=== PATIENT | male | born 2000 | race Caucasian/White ===

== ENCOUNTER 2021-02-19 21:32 | Emergency (ER) | payer MEDICAID ==
[~2021-02-19] VITALS: Ht 162.6 cm; Wt 73.9 kg
[2021-02-19 21:33] VITALS: BP 126/66
--- NOTE | 2021-02-19 21:39 | NUR ---
pt ambulated to otis
--- NOTE | 2021-02-19 21:52 | NUR ---
PT'S LAC BEING SOAKED IN WARM WATER AND BETADINE. ERMD NOTIFIED
[2021-02-19] MEDS ORDERED: LIDOCAINE MPF 1% 10 MG/ML VIAL INJ ONE (22:20)
--- NOTE | 2021-02-19 22:30 | NUR ---
20 y/o male, c/o pt states he was cutting a lemon and the knife slipped and cut his left hand 2nd digit. bleeding controlled at this time. partial thickness. denies sob, cough, cp or sore throat. denies anyone sick in household. respirations even and unlabored, heart rate even and regular. aa&ox4, ambulates with steady gait. pt states pain is 4/10, dull. pmh: denies nka med: denies
[2021-02-19] MEDS ORDERED: ACET-2619 PO (23:16)
[2021-02-19 23:19] VITALS: BP 124/68
== END 2021-02-19 23:19 | disposition home or self-care (01) ==
LOC: MED 21:32
DX: S61.211A Laceration without foreign body of left index finger without damage to nail, initial encounter (principal); Z79.899 Other long term (current) drug therapy; W26.0XXA Contact with knife, initial encounter; Y93.89 Activity, other specified; Y92.89 Other specified places as the place of occurrence of the external cause; Y99.8 Other external cause status
CPT/HCPCS: 12002; 90471; 90715; 99283; J2001

== ENCOUNTER 2021-02-28 16:55 | Emergency (ER) | payer MEDICAID ==
[~2021-02-28 16:55] MED LIST: ACET-2619 PO
--- NOTE | 2021-02-28 17:22 | NUR ---
ATTEMPTED TO CALL TO TRIAGE NO ANSWER
--- NOTE | 2021-02-28 17:30 | NUR ---
ATTEMPTED TO CALL NUMBER ON FILE, NO ANSWER
--- NOTE | 2021-02-28 17:30 | NUR ---
ATTEMPTED TO CALL TO TRIAGE NO ANSWER 2ND TIME
--- NOTE | 2021-02-28 17:46 | NUR ---
ATTEMPTED TO CALL TO TRIAGE NO ANSWER 3RD TIME
--- NOTE | 2021-02-28 17:46 | NUR ---
PATIENT LEFT WITHOUT BEING SEEN BY DR. THAYER. NO FURTHER CARE PROVIDED FOR PATIENT.
== END 2021-02-28 17:22 | disposition left against medical advice (07) ==
LOC: MED 16:55
DX: Z53.21 Procedure and treatment not carried out due to patient leaving prior to being seen by health care provider (principal)

== ENCOUNTER 2021-03-01 02:10 | Emergency (ER) | payer MEDICAID ==
[~2021-03-01] VITALS: Ht 162.6 cm; Wt 73.0 kg
[2021-03-01 02:28] VITALS: BP 115/86
--- NOTE | 2021-03-01 02:32 | NUR ---
PT AMBUALTED TO LOBBY
--- NOTE | 2021-03-01 03:05 | NUR ---
Patient discharged with v/s stable. Written and verbal after care instructions given and explained. Patient verbalized understanding. Ambulatory with steady gait. All questions addressed prior to discharge. Advised to follow up with PMD.
== END 2021-03-01 03:05 | disposition home or self-care (01) ==
LOC: MED 02:10
DX: S61.211D Laceration without foreign body of left index finger without damage to nail, subsequent encounter (principal); Z79.899 Other long term (current) drug therapy; X58.XXXD Exposure to other specified factors, subsequent encounter
CPT/HCPCS: 99281